=== PATIENT | male | born 1980 | race Caucasian/White ===

== ENCOUNTER 2016-04-15 08:59 | Emergency (ER) | payer OTHER ==
[2016-04-15 09:12] VITALS: O2SAT 97
--- NOTE | 2016-04-15 09:16 | EDPHY ---
H & P Time Seen by Provider: 04/15/16 09:16 HPI/ROS: CHIEF COMPLAINT: Vomiting and diarrhea HISTORY OF PRESENT ILLNESS: This 35-year-old man had symptoms pretty significantly this last week on Saturday and then he got slowly better in yesterday was feeling pretty good, although over the last 12 hours symptoms reoccurred. He has nausea and dry heaves associated with multiple episodes of watery diarrhea. He had a little bit of bright red blood with the most recent 1. Associated with moderate abdominal cramping. Feels weak with decreased oral intake. REVIEW OF SYSTEMS: Eye: no change in vision ENT: no sore throat Cardiac: no chest pain or syncope Pulmonary: no cough or SOB Abdomen: HPI Musculoskeletal: no back pain Skin: no rash Neuro: no headache Constitutional: no fever : no urinary symptoms A comprehensive 10 point review of systems is otherwise negative aside from elements mentioned in the history of present illness. PAST MEDICAL HISTORY: Negative except for orthopedic surgeries to include hand and shoulder Social history: No recent alcohol, recently moved from [place] [facility] Appearance: Alert and conversant, cooperative. Eyes: No scleral icterus. ENT, Mouth: Normal mucous membranes. Respiratory: Normal respiratory effort, breath sounds equal, lungs are clear to auscultation. Cardiovascular: Regular rate and rhythm. Gastrointestinal: Abdomen is soft and non tender. Normal bowel sounds, not distended, no rebound or guarding. Neurological: Alert and oriented x3. Normally conversant. Face symmetric, normal movement and sensation in all extremities. Skin: Warm and dry, no rashes. Musculoskeletal: No peripheral edema and no joint swelling. Psychiatric: Not agitated. Emergency Department course/MDM: More likely viral gastroenteritis or other infectious cause. Bright red blood after multiple episodes of diarrhea less likely to represent significant lower GI bleed. Does not have acute surgical abdominal process. Normal saline 2 L, Zofran 4 mg IV, chemistry and CBC. Referred to [facility] as an outpatient as the provider admissions clerk is [facility]. 1050: improved, taking PO Smoking Status: Never smoked Constitutional: Initial Vital Signs Temperature (C) 36.5 C 04/15/16 09:00 Heart Rate 55 L 04/15/16 09:00 Respiratory Rate 14 04/15/16 09:00 Blood Pressure 140/77 H 04/15/16 09:00 O2 Sat (%) 97 04/15/16 09:00 O2 Delivery Mode Room Air Allergies/Adverse Reactions: No Known Allergies Allergy (Unverified 04/15/16 09:10) Home Medications: Medication Instructions Recorded NK [No Known Home Meds] 04/15/16 Medical Decision Making Differential Diagnosis: Differential considered including but not limited to food poisoning, viral gastroenteritis, metabolic abnormality, appendicitis. - Data Points Laboratory Results: Laboratory Results 04/15/16 09:30 04/15/16 09:30 04/15/16 09:30 WBC 10.06 H 10^3/uL (3.80-9.50) RBC 5.83 10^6/uL (4.40-6.38) Hgb 19.2 H g/dL (13.7-17.5) Hct 52.8 H % (40.0-51.0) MCV 90.6 fL (81.5-99.8) MCH 32.9 pg (27.9-34.1) MCHC 36.4 g/dL (32.4-36.7) RDW 12.4 % (11.5-15.2) Plt Count 205 10^3/uL (150-400) MPV 9.2 fL (8.7-11.7) Neut % (Auto) 76.6 H % (39.3-74.2) Lymph % (Auto) 13.9 L % (15.0-45.0) [place] % (Auto) 8.3 % (4.5-13.0) Eos % (Auto) 0.5 L % (0.6-7.6) Baso % (Auto) 0.3 % (0.3-1.7) Nucleat RBC Rel Count 0.0 % (0.0-0.2) Absolute Neuts (auto) 7.71 H 10^3/uL (1.70-6.50) Absolute Lymphs (auto) 1.40 10^3/uL (1.00-3.00) Absolute Monos (auto) 0.83 H 10^3/uL (0.30-0.80) Absolute Eos (auto) 0.05 10^3/uL (0.03-0.40) Absolute Basos (auto) 0.03 10^3/uL (0.02-0.10) Absolute Nucleated RBC 0.00 10^3/uL (0-0.01) Immature Gran % 0.4 % (0.0-1.1) Immature Gran # 0.04 10^3/uL (0.00-0.10) Sodium 146 H mEq/L (134-144) Potassium 4.4 mEq/L (3.5-5.2) Chloride 106 mEq/L (97-110) Carbon Dioxide 28 mEq/l (22-31) Anion Gap 12 mEq/L (8-16) BUN 15 mg/dL (7-23) Creatinine 1.0 mg/dL (0.7-1.3) Estimated GFR > 60 Glucose 97 mg/dL (70-100) Calcium 9.3 mg/dL (8.5-10.4) Medications Given: Discontinued Medications Sodium Chloride (Ns) 1,000 mls @ 0 mls/hr IV ONCE ONE PRN Reason: Wide Open Stop: 04/15/16 09:22 Last Admin: 04/15/16 09:42 Dose: 1,000 mls Sodium Chloride (Ns) 1,000 mls @ 0 mls/hr IV ONCE ONE PRN Reason: Wide Open Stop: 04/15/16 09:22 Last Admin: 04/15/16 09:42 Dose: 1,000 mls Loperamide HCl (Imodium) 4 mg PO EDNOW ONE Stop: 04/15/16 09:25 Last Admin: 04/15/16 09:43 Dose: 4 mg Ondansetron HCl (Zofran) 4 mg IVP EDNOW ONE Stop: 04/15/16 09:22 Last Admin: 04/15/16 09:43 Dose: 4 mg Departure - Departure Clinical Impression: Diarrhea, Dehydration Condition: Good Instructions: Acute Diarrhea (ED), Acute Nausea and Vomiting (ED) Referrals: Derek Meléndez MD [Medical Doctor] - As per Instructions
[2016-04-15] MEDS ORDERED: ONDANSETRON 4 MG/2 ML VIAL IVP ONE (09:21)
[2016-04-15] MEDS ORDERED: NS 1,000 ML IV ONE ×2 (09:21)
[2016-04-15] MEDS ORDERED: LOPERAMIDE HCL 2 MG CAP PO ONE (09:24)
[2016-04-15 09:40] LABS: % IMMATURE GRANULYOCYTES 0.4 % (0.0-1.1); ABSOLUTE IMMATURE GRANULOCYTES 0.04 10^3/uL (0.00-0.10); ADD DIFF? NO; ADD MORPH? NO; ADD SCAN? NO; ATYPICAL LYMPHOCYTE FLAG 40 (0-99); FRAGMENT RBC FLAG 0 (0-99); HEMATOCRIT 52.8 % (40.0-51.0); HEMOGLOBIN 19.2 g/dL (13.7-17.5); LEFT SHIFT FLG 0 (0-99); LIPEMIA HEMOLYSIS FLAG 90 (0-99); MEAN CELL HEMOGLOBIN 32.9 pg (27.9-34.1); MEAN CELL HEMOGLOBIN CONCENTR. 36.4 g/dL (32.4-36.7); MEAN CELL VOLUME 90.6 fL (81.5-99.8); MEAN PLATELET VOLUME 9.2 fL (8.7-11.7); PLATELET CLUMPS FLAG 10 (0-99); PLATELET COUNT 205 10^3/uL (150-400); RED BLOOD CELL COUNT 5.83 10^6/uL (4.40-6.38); RED CELL DISTRIBUTION WIDTH 12.4 % (11.5-15.2)
[2016-04-15 09:58] LABS: ANION GAP 12 mEq/L (8-16); CALCIUM 9.3 mg/dL (8.5-10.4); CARBON DIOXIDE 28 mEq/l (22-31); CHLORIDE 106 mEq/L (97-110); GLOMERULAR FILTRATION RATE > 60; GLUCOSE 97 mg/dL (70-100); POTASSIUM 4.4 mEq/L (3.5-5.2); SODIUM 146 mEq/L (134-144)
[2016-04-15 11:12] VITALS: BP 142/68; PULSE 57; RESP 18; TEMP 97.9
== END 2016-04-15 11:10 | disposition home or self-care (01) ==
DX: R19.7 Diarrhea, unspecified (principal); E86.0 Dehydration
CPT/HCPCS: 96374; J2405